=== PATIENT | female | born 1990 | race Hispanic/Latino ===

== ENCOUNTER 2019-04-02 09:33 | Emergency (ER) | payer SELFPAY ==
--- NOTE | 2019-04-02 10:37 | ER ---
Nurse's Notes [facility] Name: Kerry Holloway Age: 29 yrs Sex: Female : 1990 Arrival Date: 04/02/2019 Time: 09:37 Bed 27 Private MD: Diagnosis: Acute upper respiratory infection, unspecified Presentation: 04/02 09:50 Presenting complaint: Patient states: sore throat, cough X 3 days, feels like iw allergies. Onset of symptoms was March 31, 2019. 09:52 Presenting complaint:. Transition of care: patient was not received from another setting of care. Risk Assessment: Do you want to hurt yourself or someone else? Patient reports no desire to harm self or others. Initial Sepsis Screen: Does the patient meet any 2 criteria? No. Patient's initial sepsis screen is negative. Does the patient have a suspected source of infection? No. Patient's initial sepsis screen is negative. Care prior to arrival: None. 09:52 Acuity: ROBERT 4 09:52 Method Of Arrival: Ambulatory Triage Assessment: 09:53 General: Appears in no apparent distress. comfortable, Behavior is calm, cooperative, aj appropriate for age. Pain: Complains of pain in left aspect of posterior pharynx and right aspect of posterior pharynx. EENT: Reports nasal congestion pain when swallowing. Neuro: Level of Consciousness is awake, alert, obeys commands, Oriented to person, place, time, situation, Appropriate for age. Respiratory: Airway is patent Respiratory effort is even, unlabored, Respiratory pattern is regular, symmetrical. Derm: Skin is intact, is healthy with good turgor, Skin is pink, warm \T\ dry. normal. 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 - Social history:: Smoking status: Patient/guardian denies using tobacco. - Ebola Screening: : Patient negative for fever greater than or equal to 101.5 degrees Fahrenheit, and additional compatible Ebola Virus Disease symptoms Patient denies exposure to infectious person Patient denies travel to an Ebola-affected area in the 21 days before illness onset No symptoms or risks identified at this time. Screenin:55 Abuse screen: Denies threats or abuse. Denies injuries from another. Nutritional aj screening: No deficits noted. Tuberculosis screening: No symptoms or risk factors identified. Fall Risk None identified. Assessment: :55 Reassessment: No changes from previously documented assessment. aj Vital Signs: 09:53 BP 119 / 85; Pulse 79; Resp 16; Temp 98.7(O); Pulse Ox 100% on R/A; Weight 54.43 kg; aj Height 5 ft. 3 in. (160.02 cm); Pain 8/10; 09:53 Body Mass Index 21.26 (54.43 kg, 160.02 cm) aj ED Course: 09:37 Patient arrived in ED. as 09:38 Chani Ta FNP-C is [facility]. kb 09:38 Donnell Farias MD is Attending Physician. kb 09:40 Batsheva Mckeon, RN is Primary Nurse. aj 09:52 Triage completed. aj 09:53 Arm band placed on right wrist. Patient placed in an exam room. aj 09:55 Patient has correct armband on for positive identification. aj 09:55 Strep Sent. aj 09:55 Flu Sent. aj 10:33 Throat Culture Sent. aj 10:40 No provider procedures requiring assistance completed. Patient did not have IV access aj during this emergency room visit. Administered Medications: No medications were administered Outcome: 10:36 Discharge ordered by MD. kb 10:40 Discharged to home ambulatory. aj 10:40 Condition: good 10:40 Discharge instructions given to patient, friend, Instructed on discharge instructions, follow up and referral plans. Demonstrated understanding of instructions, follow-up care. 10:41 Patient left the ED. aj Signatures: Chani Ta FNP-C FNP-Batsheva Stoddard, RN RN Mariella Contreras Irene RN NAVEEN iw
--- NOTE | 2019-04-02 10:37 | EDPHYS ---
Physician Documentation [facility] Name: Kerry Holloway Age: 29 yrs Sex: Female : 1990 Arrival Date: 04/02/2019 Time: 09:37 Bed 27 Private MD: ED Physician Donnell Farias HPI: 04/02 10:35 This 29 yrs old Female presents to ER via Ambulatory with complaints of Flu kb Symptoms. 10:35 The patient or guardian reports cough, that is intermittent, described as mild, with no kb sputum, flu symptoms, myalgias. Onset: The symptoms/episode began/occurred yesterday. Severity of symptoms: At their worst the symptoms were mild, moderate, in the emergency department the symptoms are unchanged. Modifying factors: The symptoms are alleviated by nothing, the symptoms are aggravated by nothing. Associated signs and symptoms: Pertinent positives: rhinorrhea, sore throat, Pertinent negatives: chest pain, diarrhea, ear ache, fever, nausea, vomiting. The patient has not experienced similar symptoms in the past. The patient has not recently seen a physician. 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 - Social history:: Smoking status: Patient/guardian denies using tobacco. - Ebola Screening: : Patient negative for fever greater than or equal to 101.5 degrees Fahrenheit, and additional compatible Ebola Virus Disease symptoms Patient denies exposure to infectious person Patient denies travel to an Ebola-affected area in the 21 days before illness onset No symptoms or risks identified at this time. ROS: 10:34 Neck: Negative for injury, pain, and swelling, Cardiovascular: Negative for chest pain, kb palpitations, and edema, Abdomen/GI: Negative for abdominal pain, nausea, vomiting, diarrhea, and constipation, Back: Negative for injury and pain, MS/Extremity: Negative for injury and deformity, Skin: Negative for injury, rash, and discoloration, Neuro: Negative for headache, weakness, numbness, tingling, and seizure. 10:34 Constitutional: Positive for body aches, malaise, Negative for fever. 10:34 ENT: Positive for sinus congestion, sore throat. 10:34 Respiratory: Positive for cough, Negative for dyspnea on exertion, hemoptysis, orthopnea, pleurisy, shortness of breath, sputum production, wheezing. Exam: 10:35 Constitutional: This is a well developed, well nourished patient who is awake, alert, kb and in no acute distress. Head/Face: Normocephalic, atraumatic. ENT: Nares patent. No nasal discharge, no septal abnormalities noted. Tympanic membranes are normal and external auditory canals are clear. Oropharynx with no redness, swelling, or masses, exudates, or evidence of obstruction, uvula midline. Mucous membranes moist. Neck: Trachea midline, no thyromegaly or masses palpated, and no cervical lymphadenopathy. Supple, full range of motion without nuchal rigidity, or vertebral point tenderness. No Meningismus. Chest/axilla: Normal chest wall appearance and motion. Nontender with no deformity. No lesions are appreciated. Cardiovascular: Regular rate and rhythm with a normal S1 and S2. No gallops, murmurs, or rubs. Normal PMI, no JVD. No pulse deficits. Respiratory: Lungs have equal breath sounds bilaterally, clear to auscultation and percussion. No rales, rhonchi or wheezes noted. No increased work of breathing, no retractions or nasal flaring. Abdomen/GI: Soft, non-tender, with normal bowel sounds. No distension or tympany. No guarding or rebound. No evidence of tenderness throughout. Skin: Warm, dry with normal turgor. Normal color with no rashes, no lesions, and no evidence of cellulitis. MS/ Extremity: Pulses equal, no cyanosis. Neurovascular intact. Full, normal range of motion. Neuro: Awake and alert, GCS 15, oriented to person, place, time, and situation. Cranial nerves II-XII grossly intact. Motor strength 5/5 in all extremities. Sensory grossly intact. Cerebellar exam normal. Normal gait. Vital Signs: 09:53 BP 119 / 85; Pulse 79; Resp 16; Temp 98.7(O); Pulse Ox 100% on R/A; Weight 54.43 kg; aj Height 5 ft. 3 in. (160.02 cm); Pain 8/10; 09:53 Body Mass Index 21.26 (54.43 kg, 160.02 cm) yarelis MDM: 09:39 Patient medically screened. kb 10:34 Data reviewed: vital signs, nurses notes. Data interpreted: Pulse oximetry: on room air kb is 100 %. Interpretation: normal. Counseling: I had a detailed discussion with the patient and/or guardian regarding: the historical points, exam findings, and any diagnostic results supporting the discharge/admit diagnosis, lab results, the need for outpatient follow up, a family practitioner, to return to the emergency department if symptoms worsen or persist or if there are any questions or concerns that arise at home. 04/02 09:48 Order name: Flu; Complete Time: 10:16 kb 04/02 09:48 Order name: Strep; Complete Time: 10:12 kb 04/02 10:14 Order name: Throat Culture EDMS Administered Medications: No medications were administered Disposition: 16:58 Co-signature as Attending Physician, Donnell Farias MD. rn Disposition: 04/02/19 10:36 Discharged to Home. Impression: Acute upper respiratory infection, unspecified. - Condition is Stable. - Discharge Instructions: Upper Respiratory Infection, Adult, [id number], Viral Respiratory Infection, [id number]. - Medication Reconciliation Form, Thank You Letter, Antibiotic Education, Prescription Opioid Use form. - Follow up: Emergency Department; When: As needed; Reason: Worsening of condition. Follow up: Private Physician; When: 2 - 3 days; Reason: Recheck today's complaints, Continuance of care, Re-evaluation by your physician. Signatures: Dispatcher Med[employer] EDChani Johnson, PASCALE MUIR-Batsheva Stoddard, RN RN Donnell Mathew MD MD deputy attorney general: (The following items were deleted from the chart) 10:41 10:36 04/02/2019 10:36 Discharged to Home. Impression: Acute upper respiratory aj infection, unspecified. Condition is Stable. Forms are Medication Reconciliation Form, Thank You Letter, Antibiotic Education, Prescription Opioid Use. Follow up: Emergency Department; When: As needed; Reason: Worsening of condition. Follow up: Private Physician; When: 2 - 3 days; Reason: Recheck today's complaints, Continuance of care, Re-evaluation by your physician. kb
== END 2019-04-02 10:41 | disposition home or self-care (01) ==
LOC: ER 09:33
DX: J06.9 Acute upper respiratory infection, unspecified (principal)
CPT/HCPCS: 87070; 87081; 87804; 99283

== ENCOUNTER 2019-12-23 08:35 | Emergency (ER) | payer BC, SELFPAY ==
--- OUTSIDE RECORDS SUMMARY | 2019-12-23 08:37 | XMS REPORT | Summary of Care ---
:1990 Author Organization [facility] Address [address] [place] [id number] Care Team Providers Name Role Phone Pcp, Patient Does Not Have A Primary Care Provider Reason for Visit Reason Comments Other legal blood draw Auth/Cert Status Reason Specialty Diagnoses / Referred By Referred To Procedures Contact Contact [facility] [address] [place] [address] [place] [address] Encounter Details Date Type Department Care Team Description 08/12/2019 Emergency [facility]-Emer[facility] Department Merced Pederson MD [address] [place] [address] [address] [facility] [id number] [place] [address] [place], [place] [id number] Allergies No Known Allergiesdocumented as of this encounter (statuses as of 08/12/2019) Medications Medication Sig Dispensed Refills Start Date End Date Status Polyethylene Glycol 3350 Take 1 Packet by 30 Packet 3 04/18/2016 Active (MIRALAX) 17 gram powder mouth daily. cyclobenzaprine 5 mg Take 1 tablet by 9 tablet 0 06/12/2019 Active tabletIndications: mouth 3 (three) Injury of head, initial times daily. encounter, Intractable acute post-traumatic headache, Nausea and vomiting, intractability of vomiting not specified, unspecified vomiting type, Concussion without loss of consciousness, initial encounter traMADOL (ULTRAM) 50 mg Take 1 tablet by 9 tablet 0 06/12/2019 Active tabletIndications: mouth every 8 Injury of head, initial (eight) hours as encounter, Intractable needed for Pain acute post-traumatic (scale 4-6). headache, Nausea and vomiting, intractability of vomiting not specified, unspecified vomiting type, Concussion without loss of consciousness, initial encounter ondansetron (ZOFRAN ODT) Take 1 tablet by 6 tablet 0 06/12/2019 Active 4 mg disintegrating mouth every 8 tabletIndications: (eight) hours as Injury of head, initial needed for encounter, Intractable Nausea and acute post-traumatic Vomiting (N/V). headache, Nausea and vomiting, intractability of vomiting not specified, unspecified vomiting type, Concussion without loss of consciousness, initial encounter documented as of this encounter (statuses as of 08/12/2019) Active Problems No known active problemsdocumented as of this encounter (statuses as of 2018) Social History Tobacco Use Types Packs/Day Years Used Date Former Smoker Cigarettes 0.5 4 Alcohol Use Drinks/Week oz/Week Comments No 0 Standard drinks or equivalent 0.0 Sex Assigned at Date Recorded Not on file Job Start Date Occupation Industry Not on file Not on file Not on file Travel History Travel Start Travel End No recent travel history available. documented as of this encounter Last Filed Vital Signs Not on filedocumented in this encounter Plan of Treatment Health Maintenance Due Date Last Done Comments VARICELLA VACCINES (1 of 2 - 13+ 2003 2-dose series) DTaP,Tdap,and Td Vaccines (1 - 2009 Tdap) PAP SMEAR 2011 INFLUENZA VACCINE (Retired 08/02/2019 version) PNEUMOCOCCAL 0-64 YEARS COMBINED Aged Out No longer eligible based on SERIES patient's age to complete this topic documented as of this encounter Results Not on filedocumented in this encounter
--- OUTSIDE RECORDS SUMMARY | 2019-12-23 08:37 | XMS REPORT ---
:1990 [facility] Address [address] [place] [address] Dr. Faust [address] [place] [address] Care Team Providers Name Role Phone Unavailable Unavailable Unavailable Problems This patient has no known problems. Allergies, Adverse Reactions, Alerts This patient has no known allergies or adverse reactions. Medications This patient has no known medications.
--- NOTE | 2019-12-23 09:48 | ER ---
Nurse's Notes [facility] Name: Kerry Holloway Age: 29 yrs Sex: Female : 1990 Arrival Date: 12/23/2019 Time: 08:38 Bed 12 Private MD: Diagnosis: Rash and other nonspecific skin eruption Presentation: 12/23 08:52 Presenting complaint: Patient states: at work had a rash across stomach and iw legs, Saturday it was gone but still felt stinging , went to doctor Saturday and was given hydroxyzine and cetirizine, and has been putting cream, still felling stinging poking pain throughout body. Transition of care: patient was not received from another setting of care. Onset of symptoms was December 20, 2019. Risk Assessment: Do you want to hurt yourself or someone else? Patient reports no desire to harm self or others. Initial Sepsis Screen: Does the patient meet any 2 criteria? No. Patient's initial sepsis screen is negative. Does the patient have a suspected source of infection? No. Patient's initial sepsis screen is negative. Care prior to arrival: None. 08:52 Method Of Arrival: Ambulatory iw 08:52 Acuity: ROBERT 5 iw Triage Assessment: 10:00 General: Appears in no apparent distress. Behavior is calm. 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 - Social history:: Smoking status: Patient reports the use of cigarette tobacco products, smokes one-half pack cigarettes per day. - Ebola Screening: : Patient negative for fever greater than or equal to 101.5 degrees Fahrenheit, and additional compatible Ebola Virus Disease symptoms Patient denies exposure to infectious person Patient denies travel to an Ebola-affected area in the 21 days before illness onset No symptoms or risks identified at this time. Screenin:03 Abuse screen: Denies threats or abuse. Denies injuries from another. Nutritional iw screening: No deficits noted. Tuberculosis screening: No symptoms or risk factors identified. Fall Risk None identified. Assessment: 09:30 General: Appears in no apparent distress. iw 09:30 Pain: Complains of pain in right arm, left arm, right leg and left leg. Neuro: Level of iw Consciousness is awake, alert, obeys commands, Oriented to person, place, time, situation. Cardiovascular: Capillary refill < 3 seconds Patient's skin is warm and dry. Respiratory: Respiratory effort is even, unlabored, Respiratory pattern is regular, symmetrical. Derm: Skin is intact, is healthy with good turgor. Derm: Reports burning, itching. Musculoskeletal: Range of motion: intact in all extremities. Vital Signs: 08:56 BP 116 / 78; Pulse 74; Resp 16; Temp 97.8; Pulse Ox 100% on R/A; Weight 43.09 kg; iw ED Course: 08:38 Patient arrived in ED. rg4 08:55 Triage completed. iw 08:56 Arm band placed on. iw 08:58 Tremaine Fermin PA is PHCP. [facility] 08:58 Donnell Farias MD is Attending Physician. [facility] 09:30 Patient has correct armband on for positive identification. iw 09:52 Alia Stevens, RN is Primary Nurse. iw 10:03 No provider procedures requiring assistance completed. Patient did not have IV access iw during this emergency room visit. Administered Medications: No medications were administered Outcome: 09:47 Discharge ordered by . [facility] 10:03 Discharged to home ambulatory. iw 10:03 Condition: good 10:03 Discharge instructions given to patient, Instructed on discharge instructions, follow up and referral plans. medication usage, Demonstrated understanding of instructions, follow-up care, medications, Prescriptions given X 2. 10:04 Patient left the ED. iw Signatures: Tremaine Fermin PA PA jmm Williams, Irene, RN RN Estrella Pagan rg4 Corrections: (The following items were deleted from the chart) 20:06 09:50 General: Appears in no apparent distress. iw iw
--- NOTE | 2019-12-23 09:48 | EDPHYS ---
Physician Documentation [facility] Name: Kerry Holloway Age: 29 yrs Sex: Female : 1990 Arrival Date: 12/23/2019 Time: 08:38 Bed 12 Private MD: ED Physician Donnell Farias HPI: 12/23 09:42 This 29 yrs old Female presents to ER via Ambulatory with complaints of Rash. jmm 09:42 The patient's rash thought to be caused by an unknown cause. Onset: The jmm symptoms/episode began/occurred gradually, 6 day(s) ago. Associated signs and symptoms: Pertinent positives: burning sensation, itching, nausea, Pertinent negatives: swelling of lips, swelling of throat, swelling of tongue, vomiting. This is a 29 year old female with no chronic medical conditions that presents to the ED with complaints of diffuse rash which began this past . Denies vomiting. Was evaluated in clinic and prescribed hydroxyzine with little relief. patient states the rash has spread from the trunk to her legs. States she is nauseous but denies diarrhea. . 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 - Social history:: Smoking status: Patient reports the use of cigarette tobacco products, smokes one-half pack cigarettes per day. - Ebola Screening: : Patient negative for fever greater than or equal to 101.5 degrees Fahrenheit, and additional compatible Ebola Virus Disease symptoms Patient denies exposure to infectious person Patient denies travel to an Ebola-affected area in the 21 days before illness onset No symptoms or risks identified at this time. ROS: 09:42 Constitutional: Negative for fever, chills, and weight loss, Cardiovascular: Negative jm for chest pain, palpitations, and edema, Respiratory: Negative for shortness of breath, cough, wheezing, and pleuritic chest pain. 09:42 Abdomen/GI: Positive for nausea, Negative for vomiting, diarrhea. 09:42 Skin: Positive for rash. 09:42 All other systems are negative. Exam: 09:42 Constitutional: This is a well developed, well nourished patient who is awake, alert, jmm and in no acute distress. Head/Face: atraumatic. Eyes: EOMI, no conjunctival erythema appreciated ENT: Moist Mucus Membranes Neck: Trachea midline, Supple Chest/axilla: Normal chest wall appearance and motion. Cardiovascular: Regular rate and rhythm. No edema appreciated Respiratory: Normal respirations, no respiratory distress appreciated Abdomen/GI: Non distended, soft Back: Normal ROM 09:42 Skin: Appearance: mild erythema noted to the forearms bilaterally. 09:42 Neuro: Orientation: is normal, Mentation: is normal, Memory: is normal, Gait: is steady. 09:42 Psych: Behavior/mood is pleasant, cooperative. Vital Signs: 08:56 BP 116 / 78; Pulse 74; Resp 16; Temp 97.8; Pulse Ox 100% on R/A; Weight 43.09 kg; iw MDM: 09:36 Patient medically screened. [facility] 09:46 Data reviewed: vital signs, nurses notes. Counseling: I had a detailed discussion with [facility] the patient and/or guardian regarding: the historical points, exam findings, and any diagnostic results supporting the discharge/admit diagnosis, the need for outpatient follow up, to return to the emergency department if symptoms worsen or persist or if there are any questions or concerns that arise at home. ED course: Patient is alert and non toxic in appearance in the ED. No pharyngeal edema appreciated. I do not suspect anaphylaxis. patient given strict return precautions. patient understood and agrees with the plan of care. . Administered Medications: No medications were administered Disposition: 16:43 Co-signature as Attending Physician, Donnell Farias MD. rn Disposition: 12/23/19 09:47 Discharged to Home. Impression: Rash and other nonspecific skin eruption. - Condition is Stable. - Discharge Instructions: Rash. - Prescriptions for Elimite 5 % Topical Cream - apply 1 application by TOPICAL route one time Wash after 12 hours.; 60 gram. Prednisone 20 mg Oral Tablet - take 3 tablet by ORAL route once daily for 5 days; 15 tablet. - Medication Reconciliation Form, Thank You Letter, Antibiotic Education, Prescription Opioid Use, Work release form form. - Follow up: Private Physician; When: 2 - 3 days; Reason: Recheck today's complaints, Continuance of care, Re-evaluation by your physician. Signatures: Tremaine Fermin PA PA jmm Williams, Irene, RN RN iw Donnell Farias MD MD collections attorney: (The following items were deleted from the chart) 10:04 09:47 12/23/2019 09:47 Discharged to Home. Impression: Rash and other nonspecific skin iw eruption. Condition is Stable. Forms are Medication Reconciliation Form, Thank You Letter, Antibiotic Education, Prescription Opioid Use. Follow up: Private Physician; When: 2 - 3 days; Reason: Recheck today's complaints, Continuance of care, Re-evaluation by your physician. tammi
[2019-12-23 18:35] VITALS: BP 116/78; TEMP 97.8; O2SAT 100
== END 2019-12-23 10:04 | disposition home or self-care (01) ==
LOC: ER 08:35
DX: R21 Rash and other nonspecific skin eruption (principal); F17.210 Nicotine dependence, cigarettes, uncomplicated; Z98.82 Breast implant status
CPT/HCPCS: 99282

== ENCOUNTER 2025-09-22 10:00 | Emergency (ER) | payer BC ==
[2025-09-22 11:25] LABS: Sqamous Epithelial <5 /HPF (None Seen); Urine Culture Reflex Order NOT NEEDED; Urine Microscopic Reflex YN ORDER UMIC
--- NOTE | 2025-09-22 11:49 | RAD REPORT ---
Transvaginal Study Probe CLINICAL INDICATION: Female 35 years old VAGINAL BLEEDING TECHNIQUE: Real-time ultrasonography of the pelvis was performed transvaginally and transabdominally. Color and spectral Doppler evaluation of the ovaries was performed. [id number]. COMPARISON: No prior exam. FINDINGS: UTERUS AND CERVIX: The uterus measures 8.2 x 3.7 x 3.5 cm (cervix to fundus x AP x transverse). The u terus is normal. No masses seen . The endometrium is normal,12 mm thickness. RIGHT OVARY: Simple cyst in the right ovary measuring 3.1 x 2.2 cm. No follow-up required. The right ovary measures 3.9 x 2.2 x 3.4 cm with volume of 15.4 mL. Normal color and spectral Doppler evaluation of the right ovary.. LEFT OVARY: Normal The left ovary measures 3.4 x 1.3 x 2.3 cm with volume of 5.2 mL. Normal Color a nd spectral Doppler evaluation of the left ovary.. FREE FLUID: No free fluid. IMPRESSION: 1. Endometrial stripe within normal limits. 2. Bilateral ovarian blood flow. Simple right ovarian cyst measuring up to 3.1 cm. Follow-up is not r equired.
--- NOTE | 2025-09-22 11:50 | RAD REPORT ---
Transvaginal Study Probe, Doppler evaluation of the ovaries CLINICAL INDICATION: Female 35 years old VAGINAL BLEEDING TECHNIQUE: Real-time ultrasonography of the pelvis was performed transvaginally and transabdominally. Color and spectral Doppler evaluation of the ovaries was performed. [id number]. COMPARISON: No prior exam. FINDINGS: UTERUS AND CERVIX: The uterus measures 8.2 x 3.7 x 3.5 cm (cervix to fundus x AP x transverse). The u terus is normal. No masses seen . The endometrium is normal,12 mm thickness. RIGHT OVARY: Simple cyst in the right ovary measuring 3.1 x 2.2 cm. No follow-up required. The right ovary measures 3.9 x 2.2 x 3.4 cm with volume of 15.4 mL. Normal color and spectral Doppler evaluation of the right ovary.. LEFT OVARY: Normal The left ovary measures 3.4 x 1.3 x 2.3 cm with volume of 5.2 mL. Normal Color a nd spectral Doppler evaluation of the left ovary.. FREE FLUID: No free fluid. IMPRESSION: 1. Endometrial stripe within normal limits. 2. Bilateral ovarian blood flow. Simple right ovarian cyst measuring up to 3.1 cm. Follow-up is not r equired.
[2025-09-22 11:54] LABS: Absolute Lymphocytes (CBC) 1.4 K/uL (0.7-4.9); Hematocrit 37.6 % (36.0-45.0); Hemoglobin 12.5 g/dL (12.0-15.0); MCH 28.8 pg (27.0-35.0); MCHC 33.1 g/dL (32.0-36.0); MCV 86.8 fL (80-100); MPV 9.8 fL (7.6-11.3); Nucleated RBC Absolute Count 0.0 (0-0); Nucleated Red Blood Cells % 0.1 % (0-0); RBC Red Blood Cell Count 4.33 M/uL (3.86-4.86); White Blood Count 5.30 thou/uL (4.3-10.9)
[2025-09-22 12:23] LABS: Anion Gap 7.7 mEq/L (5.0-15.0); BUN Blood Urea Nitrogen 10.0 mg/dL (7-18); Glucose Level 71.0 mg/dL (74-106)
[2025-09-22 12:26] LABS: Potassium 3.7 mEq/L (3.5-5.1)
--- NOTE | 2025-09-22 13:08 | EDPHYS ---
Physician Documentation [facility] Name: Kerry Holloway Age: 35 yrs Sex: Female : 1990 Arrival Date: 09/22/2025 Time: 10:00 Bed 20 Private MD: AICHA Physician Jona Geurrero HPI: 09/22 11:01 This 35 yrs old Female presents to ER via Ambulatory with complaints of sb4 Vaginal Bleeding. 11:01 Patient reports heavy vaginal bleeding for about a month now. States that she is sb4 passing a large amount of clots. Denies any pain or cramping. Denies any prior incidences of this, states that her menstrual cycle is usually normal. States that she has a known left ovarian cyst, but usually does not given her any issues. She is not on any contraceptive therapy, is not . Historical: - Allergies: 10:21 No Known Allergies; bp - PMHx: 10:21 OVARIAN CYST; bp - PSHx: 10:21 section; bp - Immunization history:: Adult Immunizations up to date. - Infectious Disease History:: Denies. - Social history:: Smoking status: Patient denies any tobacco usage or history of. ROS: 11:01 Positive for vaginal bleeding, menstrual abnormality, sb4 11:01 Constitutional: Negative for fever, chills, and weight loss, 11:01 All other systems are negative, Exam: 11:01 Constitutional: This is a well developed, well nourished patient who is awake, alert, sb4 and in no acute distress. Head/Face: Normocephalic, atraumatic. Eyes: Extra-ocular motions intact. Periorbital areas with no swelling, redness, or edema. ENT: Mucous membranes moist. Respiratory: No increased work of breathing, no retractions or nasal flaring. Abdomen/GI: Soft, non-tender, no distension. Skin: Warm, dry with normal turgor. Normal color with no rashes, no lesions, and no evidence of cellulitis. Vital Signs: 10:20 BP 118 / 79; Pulse 77; Resp 16; Temp 98; Pulse Ox 100% ; bp 13:15 BP 119 / 81; Pulse 68; Resp 16; Pulse Ox 98% ; db MDM: 10:07 Medical Screening Exam initiated sb4 11:02 Differential diagnosis: dysfunctional uterine bleeding, endometriosis, malignancy, sb4 uterine cancer menometrorrhagia, molar preganancy, ovarian cyst, uterine fibroids, urinary tract infection, vaginosis. 12:28 Data reviewed: vital signs, nurses notes, lab test result(s), radiologic studies, sb4 ultrasound, and as a result, I will discharge patient. Counseling: I had a detailed discussion with the patient and/or guardian regarding the historical points, exam findings, and any diagnostic results supporting the discharge/admit diagnosis, lab results, radiology results, the need for outpatient follow up, an OB/Gyne specialist, to return to the emergency department if symptoms worsen or persist or if there are any questions or concerns that arise at home. 09/22 10:47 Order name: Basic Metabolic Panel; Complete Time: 12:27 sb4 09/22 10:47 Order name: CBC with Diff; Complete Time: 11:58 sb4 09/22 10:47 Order name: Test, Urine; Complete Time: 11:29 sb4 09/22 10:47 Order name: UA Rfx Charlie Cult if indicated; Complete Time: 11:25 sb4 09/22 11:31 Order name: Transvaginal Study Probe; Complete Time: 11:54 EDMS 09/22 11:32 Order name: Abdomen Pelvis Scan\E\US; Complete Time: 11:54 EDMS 09/22 10:47 Order name: IV Saline Lock; Complete Time: 11:28 sb4 09/22 10:47 Order name: Labs collected and sent; Complete Time: 11:28 sb4 Administered Medications: No medications were administered Disposition Summary: 09/22/25 13:08 Discharge Ordered Notes: Location: Home sb4 Problem: an ongoing problem sb4 Symptoms: are unchanged sb4 Condition: Stable sb4 Diagnosis - Abnormal uterine and vaginal bleeding, unspecified sb4 Followup: sb4 - With: Ramona Dash MD - When: As needed - Reason: Further diagnostic work-up, Recheck today's complaints, Re-evaluation by your physician Discharge Instructions: - Discharge Summary Sheet sb4 - Abnormal Uterine Bleeding, [id number] sb4 Forms: - Work release form sb4 - Patient Portal Instructions sb4 - Leadership Thank You Letter sb4 Prescriptions: - norethindrone acetate 5 mg Oral tablet - take 1 tablet ORAL route daily for 14 days; 14 tablet; Refills: 0, Product sb4 Selection Permitted Signatures: Dispatcher [employer] Tani Del Rio, RN RN Gabi Curtis PA-C PAKeesha sb4 Corrections: (The following items were deleted from the chart) 11:31 10:48 Transvaginal Ob+US.RAD.BRZ ordered. RALPH ROSAS
--- NOTE | 2025-09-22 13:08 | ER ---
Nurse's Notes [facility] Name: Kerry Holloway Age: 35 yrs Sex: Female : 1990 Arrival Date: 09/22/2025 Time: 10:00 Bed 20 Private MD: Diagnosis: Abnormal uterine and vaginal bleeding, unspecified Presentation: 09/22 10:20 Chief complaint: Patient states: VAGINAL BLEEDING WITH CLOTS SINCE ABNORMAL PERIOD IN bp . DENIES N/V. Coronavirus screen: At this time, the client does not indicate any symptoms associated with coronavirus-19. Ebola Screen: No symptoms or risks identified at this time. Initial Sepsis Screen: Does the patient meet any 2 criteria? No. Patient's initial sepsis screen is negative. Does the patient have a suspected source of infection? No. Patient's initial sepsis screen is negative. Risk Assessment: Do you want to hurt yourself or someone else? Patient reports no desire to harm self or others. Onset of symptoms is unknown. 10:20 Method Of Arrival: Ambulatory bp 10:20 Acuity: ROBERT 3 bp Historical: - Allergies: 10:21 No Known Allergies; bp - PMHx: 10:21 OVARIAN CYST; bp - PSHx: 10:21 section; bp - Immunization history:: Adult Immunizations up to date. - Infectious Disease History:: Denies. - Social history:: Smoking status: Patient denies any tobacco usage or history of. Screenin:44 [facility] ED Fall Risk Assessment (Adult) History of falling in the last 3 months, db including since admission No falls in past 3 months (0 pts) Confusion or Disorientation No (0 pts) Intoxicated or Sedated No (0 pts) Impaired Gait No (0 pts) Mobility Assist Device Used No (0 pt) Altered Elimination No (0 pt) Score/Fall Risk Level 0 - 2 = Low Risk Oriented to surroundings, Maintained a safe environment. Abuse screen: Denies threats or abuse. Denies injuries from another. Nutritional screening: No deficits noted. Tuberculosis screening: No symptoms or risk factors identified. Assessment: 11:43 Reassessment: Patient appears in no apparent distress at this time. Patient and/or db family updated on plan of care and expected duration. Pain level reassessed. Patient is alert, oriented x 3, equal unlabored respirations, skin warm/dry/pink. General: Appears in no apparent distress. comfortable, Behavior is calm, cooperative. Pain: Denies pain. Neuro: Level of Consciousness is awake, alert, obeys commands, Oriented to person, place, time, situation. Respiratory: Airway is patent Respiratory effort is even, unlabored, Respiratory pattern is regular, symmetrical. : Urine is blood tinged, Reports vaginal bleeding that is. 13:25 Reassessment: Patient appears in no apparent distress at this time. Patient and/or db family updated on plan of care and expected duration. Pain level reassessed. Patient is alert, oriented x 3, equal unlabored respirations, skin warm/dry/pink. Vital Signs: 10:20 BP 118 / 79; Pulse 77; Resp 16; Temp 98; Pulse Ox 100% ; bp 13:15 BP 119 / 81; Pulse 68; Resp 16; Pulse Ox 98% ; db ED Course: 10:06 Patient arrived in ED. im 10:07 Gabi Butt PA-C is PHCP. sb4 10:07 Jona Guerrero MD is Attending Physician. sb4 10:21 Triage completed. bp 10:21 Arm band placed on. bp 11:28 Lima Prajapati, RN is Primary Nurse. db 11:31 Transvaginal Study Probe In Process Unspecified. EDMS 11:32 Abdomen Pelvis Scan\E\US In Process Unspecified. EDMS 11:35 Patient moved back from CT. db 11:35 Initial lab(s) drawn, by me, sent to lab. Inserted saline lock: 22 gauge in right db forearm, using aseptic technique. Blood collected. Flushed with 10 mL NS. 11:44 Patient has correct armband on for positive identification. Bed in low position. Call db light in reach. Side rails up X 1. 11:45 Warm blanket given. Pillow given. db 13:08 Ramona Dash MD is Referral Physician. sb4 13:25 Provided Education on: DISCHARGE AND FOLLOWUP. db 13:25 No provider procedures requiring assistance completed. IV discontinued, intact, db bleeding controlled, No redness/swelling at site. Administered Medications: No medications were administered Medication: 11:44 VIS not applicable for this client. db Outcome: 13:08 Discharge ordered by . sb4 13:25 Discharged to home ambulatory, db 13:25 Condition: stable 13:25 Discharge instructions given to patient, Instructed on discharge instructions, follow up and referral plans. Prescriptions given X 2, 13:26 Patient left the ED. db Signatures: Dispatcher [employer] Tani Del Rio, RN RN Lima Noriega, RN RN Gabi Arreaga PA-C PA-C sb4 Avani Tanner Corrections: (The following items were deleted from the chart) 11:31 11:26 In radiology for Transvaginal Ob+US.RAD.YOMAIRA. RALPH ROSAS
[2025-09-22 15:37] VITALS: TEMP 98
[2025-09-22 15:38] VITALS: BP 119/81; O2SAT 98
== END 2025-09-22 13:26 | disposition home or self-care (01) ==
LOC: ER 10:00
DX: N93.9 Abnormal uterine and vaginal bleeding, unspecified (principal); N83.202 Unspecified ovarian cyst, left side
CPT/HCPCS: 36415; 76830; 80048; 81001; 81025; 85025; 93975; 99284